=== PATIENT | male | born 1960 | race Caucasian/White ===

== ENCOUNTER 2019-04-04 09:33 | Outpatient (CLI) | payer BC ==
[2019-04-04 16:22] LABS: #Basophils 0.1 thou/uL (0.0-0.2); #Eosinphils 0.2 thou/uL (0.0-0.7); #Lymphocytes 1.4 thou/uL (1.20-3.40); #Monocytes 0.7 thou/uL (0.11-0.59); #Neutrophils 4.4 thou/uL (1.40-6.50); %Eosinophils 3.3 % (0.0-10.0); %Monocytes 10.2 % (0.0-10.0); %Neutrophils 64.6 % (42.0-75.0); Hemoglobin 14.6 g/dL (14.0-18.0); Mean Corpuscular HGB CONC 33.4 g/dL (32.0-36.0); Mean Corpuscular Hemoglobin 31.2 pg (27.0-31.0); Mean Corpuscular Volume 93.5 fL (78.0-98.0); Platelet Count 216 thou/uL (130-400); RBC Distribution Width 11.6 % (11.5-14.5); Red Blood Cell (RBC) Count 4.67 mill/uL (4.70-6.10); White Blood Cell (WBC) Count 6.9 thou/uL (4.8-10.8)
[2019-04-04 16:30] LABS: PTT 27.6 SEC (22.9-36.1)
[2019-04-04 16:31] LABS: INR-International Normal Ratio 0.9; Prothrombin Time 12.4 SEC (12.0-14.7)
[2019-04-04 16:44] LABS: ALT (SGPT) 29 U/L (8-55); AST (SGOT) 21 U/L (5-34); Albumin 4.3 g/dL (3.5-5.0); Alkaline Phosphatase 72 U/L (40-110); Anion Gap 13 mmol/L (10-20); BUN (Urea Nitrogen) 17 mg/dL (8.4-25.7); Bilirubin, Direct 0.2 mg/dL (0.1-0.3); Bilirubin, Total 0.5 mg/dL (0.2-1.2); Calc. Creatinine Clearance 0 mL/min (70-130); Calcium 9.3 mg/dL (7.8-10.44); Carbon Dioxide 29 mmol/L (22-29); Chloride 100 mmol/L (98-107); Estimated GFR-MDRD 81; Glucose 101 mg/dL (70-105); Protein, Total 6.9 g/dL (6.0-8.3); Sodium 138 mmol/L (136-145)
--- NOTE | 2019-04-06 15:24 | EKG ---
Test Reason : Blood Pressure : / mmHG Vent. Rate : 074 BPM Atrial Rate : 074 BPM P-R Int : 148 ms QRS Dur : 078 ms QT Int : 360 ms P-R-T Axes : 011 051 050 degrees QTc Int : 399 ms Normal sinus rhythm Normal ECG No previous ECGs available Confirmed by DR. Meme THRASHER ([id number]) on 04/06/2019 3:23:52 PM Referred By: IERO Confirmed By:DR. Meme THRASHER
== END 2019-04-04 09:34 | disposition home or self-care (01) ==
LOC: LABBT 09:33
PROVIDERS: ATTEND Orthopaedic Surgery
DX: Z01.818 Encounter for other preprocedural examination (principal); M75.102 Unspecified rotator cuff tear or rupture of left shoulder, not specified as traumatic
CPT/HCPCS: 80048; 80076; 85025; 85610; 85730; 93005; 93010

== ENCOUNTER 2019-04-06 06:47 | Day surgery (SDC) | payer BC ==
[2019-04-04 15:32] VITALS: BMI 32.4
[2019-04-06] MEDS ORDERED: Fentanyl 100 MCG/2 ML VIAL ONE (07:41)
[2019-04-06] MEDS ORDERED: Midazolam HCl 2 mg/2 ml Vial ONE (07:41)
[2019-04-06] MEDS ORDERED: Bupivacaine 0.25% HCL 30 ML VIAL ONE (08:16)
[2019-04-06] MEDS ORDERED: Promethazine HCl 25 MG/ML VIAL IM PRN (08:20)
[2019-04-06] MEDS ORDERED: Zolpidem Tartrate 5 MG TAB PO PRN (08:20)
[2019-04-06] MEDS ORDERED: Ketorolac Tromethamine 30 MG/ML VIAL IVP PRN (08:20)
[2019-04-06] MEDS ORDERED: Ondansetron PF 4 MG/2 ML Vial IVP PRN (08:20)
[2019-04-06] MEDS ORDERED: traMADol HCl 50 MG TAB PO PRN ×2 (08:20)
[2019-04-06] MEDS ORDERED: Ropivacaine 0.2% 550 ML 550 ML NERVE BLCK SCH (08:20)
[2019-04-06] MEDS ORDERED: HYDROcodone/Acetaminophen 10/325 mg Tablet PO PRN ×2 (08:20)
[2019-04-06] MEDS ORDERED: Fentanyl 100 MCG/2 ML VIAL IV PRN (08:20)
[2019-04-06] MEDS ORDERED: Acetaminophen 325 MG TAB PO PRN (08:23)
[2019-04-06] MEDS ORDERED: Lidocaine 1% w/Epinephrine 1:100K 20 ML VIAL ONE (08:33)
--- NOTE | 2019-04-06 11:54 | OP ---
DATE OF PROCEDURE: 04/06/2019 PREOPERATIVE DIAGNOSES: Left shoulder rotator cuff tear and biceps tendon pain and instability secondary to degenerative SLAP tear. POSTOPERATIVE DIAGNOSES: Left shoulder rotator cuff tear and biceps tendon pain and instability secondary to degenerative SLAP tear. PROCEDURES PERFORMED: 1. Left shoulder arthroscopy with arthroscopic rotator cuff repair. 2. Open biceps tenodesis. CLIPPER AND TURNER: Randall Almaraz PA-C ESTIMATED BLOOD LOSS: Minimal to 30 mL. COMPLICATIONS: None. ANESTHESIA: The patient had general anesthetic as well as a preoperative block. DISPOSITION: He did go to recovery room in stable condition. IMPLANTS: We used one titanium triple-loaded rotator cuff anchor, we used one 4.75 BioComposite SwiveLock for a double-row repair, and we used one 7 x 23 BioComposite Bio-Tenodesis screw. INDICATIONS FOR PROCEDURE: This 58-year-old active male comes in complaining of left shoulder pain and weakness. He was found to have a rotator cuff tear as well as degenerative SLAP tear. At this time, he opted for surgery. DESCRIPTION OF PROCEDURE: After all appropriate consent forms were explained and signed, he was taken to the operative room and at this time was given general anesthetic. Once the level of anesthesia was appropriate, he was rolled into the right lateral decubitus position and all bony prominences well padded. An axillary roll was placed underneath the right axilla. Beanbag was inflated to hold him in this position. The arm was then taken through full range of motion and then suspended with 15 pounds in standard arthroscopic fashion. The left shoulder and upper extremity were then prepped and draped in standard surgical fashion. Bony anatomical landmarks were drawn out. The subacromial space was infiltrated with Marcaine with epinephrine. Posterior portal was established. Scope was placed into the shoulder joint. Anterior working portal was made using a needle localization technique. Diagnostic arthroscopy commenced. Articular surface of the humeral head and glenoid were in excellent condition. No loose bodies were noted in the pouch. The rotator cuff tear was found in the beginning portion of supraspinatus. Top edge of subscapularis was also found to be torn. The patient had a degenerative SLAP tear with unstable biceps and significant synovitis around the base of this. Posterior and inferior labrum were in good condition. At this time, the shaver was introduced to debride the rotator cuff tear from the inside portion as well as top part of the subscap. At this time, we then used an 18-gauge needle to delgado the biceps and placed a stitch through it. The SERFAS energy probe was used to cut our biceps tendon off the labrum. At this time, we turned our attention to the subacromial space and replacing the scope there. Lateral working portal was made. A PassPort cannula was placed, and at this time, soft tissue was removed from off the undersurface of the acromion. No bony decompression was performed. Rotator cuff tear was found. Edges were debrided and cleaned up with a shaver. All soft tissue was removed off the bone. The shaver was used to slightly decorticate this, and at this time, through a small poke-hole incision, a triple-loaded titanium anchor was placed into the tuberosity bone just off the articular surface. We then used the Scorpion device to place the sutures through the rotator cuff in mattress fashion. We then took all these down laterally through one 4.75 SwiveLock for a double-row repair. The scope was then removed. Shoulder was drained. A 15-blade was used to incise down through skin. Bovie was used to coagulate any brisk venous bleeding. Fascia was opened up and finger dissection was used to dissect in line with the fibers of the deltoid to get down to the underlying transverse humeral ligament. This was opened up. Biceps was pulled into the wound and it was sutured. The intra-articular portion was cut off. We then placed our pin, reamed with a 7-mm reamer to a depth of 25, and placed our 7 x 23 BioComposite Bio-Tenodesis screw in standard fashion. Sutures were tied over top of this, so that screw could not back out. We then thoroughly irrigated and dried. We allowed the deltoid to close upon itself. A running Vicryl suture was used to close our deltoid fascia, 2-0 Vicryl and nylon sutures on the skin. Bulky sterile dressing was then applied. The patient was awakened and taken to recovery room in stable condition. All counts were correct at the end of the case and he did receive preoperative IV antibiotics. Job ID: [id number]
[2019-04-06] MEDS ORDERED: Ropivacaine 0.2% HCl/PF (40 MG/20 ML VIAL) ONE (14:24)
[2019-04-06] MEDS ORDERED: ePHEDrine/0.9% NaCl/PF SYRINGE 50 mg/10 ml ONE (14:24)
[2019-04-06] MEDS ORDERED: Lidocaine 1% PF 5 ML VIAL ONE (14:24)
[2019-04-06] MEDS ORDERED: Rocuronium Bromide 10 MG/ML (10ML VIAL) ONE (14:24)
[2019-04-06] MEDS ORDERED: Glycopyrrolate 0.2 MG/ML 5 ML SYRINGE ONE (14:24)
[2019-04-06] MEDS ORDERED: Ondansetron PF 4 MG/2 ML Vial ONE (14:24)
[2019-04-06] MEDS ORDERED: Ropivacaine 0.5% HCl/PF (150 MG/30 ML VIAL) ONE (14:24)
== END 2019-04-06 12:21 | disposition home or self-care (01) ==
LOC: SDC 06:47
PROVIDERS: ATTEND Orthopaedic Surgery
PROC: 0LS20ZZ Reposition Left Shoulder Tendon, Open Approach (ICD-10-PCS; principal; 2019-04-06)
PROC: 0RNK4ZZ Release Left Shoulder Joint, Percutaneous Endoscopic Approach (ICD-10-PCS; principal; 2019-04-06)
PROC: 0RHK04Z Insertion of Internal Fixation Device into Left Shoulder Joint, Open Approach (ICD-10-PCS; principal; 2019-04-06)
PROC: 0LQ24ZZ Repair Left Shoulder Tendon, Percutaneous Endoscopic Approach (ICD-10-PCS; principal; 2019-04-06)
PROC: 3E0T3BZ Introduction of Anesthetic Agent into Peripheral Nerves and Plexi, Percutaneous Approach (ICD-10-PCS; principal; 2019-04-06)
DX: S43.432A Superior glenoid labrum lesion of left shoulder, initial encounter (principal); M75.122 Complete rotator cuff tear or rupture of left shoulder, not specified as traumatic; M25.312 Other instability, left shoulder; M65.812 Other synovitis and tenosynovitis, left shoulder; E78.00 Pure hypercholesterolemia, unspecified; K21.9 Gastro-esophageal reflux disease without esophagitis; E11.9 Type 2 diabetes mellitus without complications; Z79.84 Long term (current) use of oral hypoglycemic drugs; Z79.899 Other long term (current) drug therapy
CPT/HCPCS: A4306; C1713; J0690; J2001; J2250; J2405; J2795; J3010; S0020

== ENCOUNTER 2020-02-20 06:52 | Outpatient (CLI) | payer BC ==
[2020-02-20 14:36] LABS: Bilirubin Neg (Negative); Blood, Urine Negative (Negative); Clarity Clear (Clear); Glucose, Urine (Dipstick) Normal (Negative); Ketone, Urine Negative (Negative); Leukocyte Negative (Negative); Nitrite Negative (Negative); Protein, Urine (Dipstick) Negative (Neg-Trace); Specific Gravity, Urine 1.015 (1.002-1.036); Urobilinogen Normal mg/dL (Less than 2)
[2020-02-20 15:14] LABS: Anion Gap 16 mmol/L (10-20); BUN (Urea Nitrogen) 18 mg/dL (8.4-25.7); Calc. Creatinine Clearance 0 mL/min (70-130); Calcium 9.7 mg/dL (7.8-10.44); Carbon Dioxide 28 mmol/L (22-29); Chloride 99 mmol/L (98-107); Estimated GFR-MDRD 84; Glucose 104 mg/dL (70-105); Potassium 4.3 mmol/L (3.5-5.1); Sodium 139 mmol/L (136-145)
[2020-02-20 15:24] LABS: Prothrombin Time 10.5 sec (9.5-12.1)
[2020-02-20 15:27] LABS: #Basophils 0.1 10x3/uL (0.0-0.2); #Eosinphils 0.2 10x3/uL (0.0-0.5); #Monocytes 0.7 10x3/uL (0.0-1.1); %Basophils 0.8 % (0.0-2.0); %Eosinophils 3.1 % (0.0-6.0); %Lymphocytes 22.3 % (18.0-47.0); %Monocytes 11.1 % (0.0-10.0); %Neutrophils 62.5 % (40.0-75.0); Hemoglobin 15.4 g/dL (14.0-18.0); Mean Corpuscular HGB CONC 33.5 G/DL (32.0-36.0); Mean Corpuscular Hemoglobin 32.2 PG (27.0-33.0); Mean Platelet Volume 10.3 fl (7.4-10.4); Platelet Count 218 10x3/uL (130-400); Red Blood Cell (RBC) Count 4.79 10x6/uL (4.40-5.80); White Blood Cell (WBC) Count 6.4 10x3/uL (4.5-11.0)
[2020-02-20 15:53] LABS: RBC/HPF None Seen HPF (0-3); WBC/HPF None Seen HPF (0-3)
[2020-02-20 15:54] LABS: Squamous Epithelial 0-3 HPF (0-3)
[2020-02-20 15:58] LABS: Bacteria/HPF Rare-Few HPF (None Seen)
[2020-02-21 03:41] LABS: SARS-CoV-2 MS2 Positive; SARS-CoV-2 N Gene Negative; SARS-CoV-2 S Gene Negative; SARS-CoV-2 by NAA Not Detected (NotDetected); SARS-CoV-2 orf1ab Negative
== END 2020-02-20 06:53 | disposition home or self-care (01) ==
LOC: LABBT 06:52
PROVIDERS: ATTEND Orthopaedic Surgery
DX: Z01.818 Encounter for other preprocedural examination (principal); Z20.828 Contact with and (suspected) exposure to other viral communicable diseases; M17.12 Unilateral primary osteoarthritis, left knee
CPT/HCPCS: 80048; 81001; 85025; 85610; 87081; 87635; 93005; 93010; U0003

== ENCOUNTER 2020-02-20 14:00 | Inpatient (IN) | payer BC ==
[2020-02-19 14:32] VITALS: BMI 29.9
[2020-02-25] MEDS ORDERED: Vancomycin 1.5 GRAM/300 ML BAG ONE (06:08)
[2020-02-25] MEDS ORDERED: Tranexamic Acid 1,000 MG/10 ML VIAL ONE ×2 (06:08→09:53)
[2020-02-25] MEDS ORDERED: Sodium Chloride 0.9% 100 ML ONE (06:08)
[2020-02-25] MEDS ORDERED: Fentanyl 100 MCG/2 ML VIAL ONE ×4 (06:17→09:48)
[2020-02-25] MEDS ORDERED: Midazolam HCl 2 mg/2 ml Vial ONE (06:28)
[2020-02-25] MEDS ORDERED: Bupivacaine PF 0.5% 30 ML VIAL ONE (06:47)
[2020-02-25] MEDS ORDERED: Promethazine HCl 25 MG/ML VIAL IM PRN ×3 (07:30→09:19)
[2020-02-25] MEDS ORDERED: Zolpidem Tartrate 5 MG TAB PO PRN ×2 (07:30→09:09)
[2020-02-25] MEDS ORDERED: traMADol HCl 50 MG TAB PO PRN ×2 (07:30)
[2020-02-25] MEDS ORDERED: Ropivacaine HCl/PF 250 ML in Premix Bag 1 BAG NERVE BLCK SCH (07:30)
[2020-02-25] MEDS ORDERED: Ondansetron PF 4 MG/2 ML Vial IVP PRN ×2 (07:30→09:09)
[2020-02-25] MEDS ORDERED: HYDROcodone/Acetaminophen 10/325 mg Tablet PO PRN (07:30)
[2020-02-25] MEDS ORDERED: Fentanyl 100 MCG/2 ML VIAL IV PRN (07:31)
[2020-02-25] MEDS ORDERED: Acetaminophen 325 MG TAB PO PRN (09:09)
[2020-02-25] MEDS ORDERED: diphenhydrAMINE 25 MG CAP PO PRN (09:09)
[2020-02-25] MEDS ORDERED: Tranexamic Acid 1,000 MG in Sodium Chloride 0.9% 100 ML IVPB SCH (09:15)
[2020-02-25] MEDS ORDERED: Ondansetron HCl/PF 4 MG/2 ML Vial IVP PRN (09:19)
[2020-02-25] MEDS ORDERED: Promethazine HCl 25 MG/ML VIAL SLOW IVP PRN (09:19)
[2020-02-25] MEDS ORDERED: Ketorolac Tromethamine 30 MG/ML VIAL ONE ×2 (09:34→10:01)
[2020-02-25] MEDS: Ketorolac Tromethamine 30 MG/ML VIAL IVP SCH ×3 (12:23→22:59)
[2020-02-25] MEDS: HYDROcodone/Acetaminophen 10/325 mg Tablet PO PRN ×2 (12:24→17:36)
[2020-02-25] MEDS ORDERED: Ropivacaine 0.2% HCl/PF (40 MG/20 ML VIAL) ONE (13:58)
[2020-02-25] MEDS ORDERED: Dexamethasone 20 MG/5 ML VIAL ONE (13:58)
[2020-02-25] MEDS ORDERED: Ondansetron PF 4 MG/2 ML Vial ONE (13:58)
[2020-02-25] MEDS ORDERED: PROPOFOL 200 MG/20 ML VIAL ONE (13:58)
[2020-02-25] MEDS ORDERED: Bupivacaine HCl 0.5%/Epinephrine 1:200,000/PF 30 ml Vial ONE (13:58)
[2020-02-25] MEDS ORDERED: Lidocaine 1% PF 5 ML VIAL ONE (13:58)
[2020-02-25] MEDS: CEFAZOLIN 2 GM in Premix Bag 1 BAG IVPB SCH ×2 (14:14→21:00)
[2020-02-25] MEDS: Sodium Chloride 0.9% 1,000 ML IV SCH ×2 (15:03→19:28)
[2020-02-25] MEDS ORDERED: Vancomycin HCl 1.5 GM in Sodium Chloride 0.9% 250 ML 300 ML IVPB SCH (18:00)
[2020-02-25] MEDS ORDERED: Vancomycin 1.5 GRAM/300 ML BAG 1.5 GM in Premix Bag 1 BAG IVPB SCH (18:00)
--- NOTE | 2020-02-25 19:10 | OP ---
DATE OF PROCEDURE: 02/25/2020 PREOPERATIVE DIAGNOSIS: Left knee osteoarthrosis. POSTOPERATIVE DIAGNOSIS: Left knee osteoarthrosis. PROCEDURES PERFORMED: Left total knee replacement using AAV[employer] pinless navigation. AGRICULTURAL MECHANIC: Randall Almaraz PA-C. The assistant merchandise manager surgeon was present throughout the procedure to include the approach, the entire total knee replacement, followed by closure of the wound. ESTIMATED BLOOD LOSS: Minimal. COMPLICATIONS: None. ANESTHESIA: He did have a general anesthetic. He also had a preoperative block. IMPLANTS: To the left knee include [employer] total knee system, the femur is a size 4 cruciate retaining femur. We used a size 4 primary tibial base plate. We used a 4 x 11 mm CS X3 tibial poly. We used a 29 x 9 asymmetric X3 patella. DISPOSITION: He went to recovery room in stable condition. INDICATIONS FOR PROCEDURE: This is a 59-year-old male. He has been dealing with significant pain in the left knee for months and unfortunately, he has failed nonoperative treatment. At this time, he wished to have knee replaced. PROCEDURE IN DETAIL: After all appropriate consent forms were explained and signed, the patient was taken back to the operating room and at this time was given general anesthetic. Once the level of anesthesia was appropriate, a well-padded tourniquet was placed on the left leg, and the leg was then prepped and draped in standard surgical fashion. The limb was exsanguinated and tourniquet taken up to 300 mmHg. Midline incision was made with a 10 blade down through the skin and subcutaneous tissue. Bovie electrocautery was used to coagulate any brisk venous bleeding. A new blade was used to make a medial parapatellar arthrotomy. Small subperiosteal release was performed medially and excess fat pad was removed. The knee was flexed up to gain access to the femur. The femur was navigated and distal femoral resection was made. Epicondylar access was used to align our sizing jig and this was pinned in place. We sized our femur to be a size 4 cruciate retaining femur. 4:1 cutting block was applied and pinned. Anterior and posterior chamfer cuts were then made. We navigated out our proximal tibia and made our proximal tibial resection. Spreaders were used to remove any posterior osteophytes off the back of the femur as well as remaining meniscal tissue. A long alignment bobby was then used to achieve correct rotation of our tibial baseplate and a size 4 was chosen. This was pinned in place. We trialed the polyethylene and a 4 x 11 mm CS X3 tibial polyethylene gave us full extension and good stability throughout range of motion. Two towel clips and a saw were used to cut our patella. Three lug nuts were drilled and 29 x 9 asymmetric X3 patella was trialed which sat nicely in the trochlear groove. We then drilled our femur and punched our tibia. All components were removed. The knee was thoroughly irrigated and dried. Cement was mixed into the cement gun on the back table. Components were then placed. The knee was held out in full extension until the cement had dried. All excess bone cement was removed. Multiple #2 Vicryl stitches as well as a Quill were used to close our extensor mechanism. 0 Quill followed by a running Monoderm was then used to close the skin. Surgicel glue was then used on the skin. Once this had dried, soft tissue dressing was applied to the limb, tourniquet was let down, and the toes pinked up nicely. The patient was then awakened and taken to the recovery room in stable condition. All counts were correct at the end of the case. The patient did receive preoperative IV antibiotics. The patient was injected with Marcaine for postoperative pain relief. Job ID: [id number]
[2020-02-25] MEDS: Ferrous Gluconate 324 MG TAB PO SCH (21:00)
[2020-02-25] MEDS: Aspirin 81 mg Enteric Coated Tablet PO SCH (21:00)
[2020-02-25] MEDS: metFORMIN 500 MG TAB PO SCH (21:00)
[2020-02-25] MEDS: Senokot S 8.6-50 MG TAB PO SCH (21:00)
[2020-02-26] MEDS: Sodium Chloride 0.9% 1,000 ML IV SCH ×2 (05:49→15:07)
[2020-02-26] MEDS: HYDROcodone/Acetaminophen 10/325 mg Tablet PO PRN ×4 (05:53→20:15)
[2020-02-26] MEDS: Ketorolac Tromethamine 30 MG/ML VIAL IVP SCH ×3 (05:54→17:30)
[2020-02-26 05:56] LABS: Mean Corpuscular HGB CONC 33.1 g/dL (32.0-36.0); Mean Corpuscular Hemoglobin 32.8 pg (27.0-31.0); Mean Platelet Volume 7.6 fL (7.4-10.4); Platelet Count 147 thou/uL (130-400); RBC Distribution Width 11.4 % (11.5-14.5); Red Blood Cell (RBC) Count 3.97 mill/uL (4.70-6.10); White Blood Cell (WBC) Count 11.1 thou/uL (4.8-10.8)
[2020-02-26] MEDS: Cholecalciferol (Vitamin D3) 400 UNITS TAB PO SCH (08:27)
[2020-02-26] MEDS: Magnesium Oxide 400 MG TAB PO SCH (08:27)
[2020-02-26] MEDS: Multivitamin W/ Minerals 1 TAB PO SCH (08:27)
[2020-02-26] MEDS: Ferrous Gluconate 324 MG TAB PO SCH ×2 (08:27→20:16)
[2020-02-26] MEDS: Aspirin 81 mg Enteric Coated Tablet PO SCH ×2 (08:27→20:16)
[2020-02-26] MEDS: metFORMIN 500 MG TAB PO SCH ×2 (08:27→20:16)
[2020-02-26] MEDS: Senokot S 8.6-50 MG TAB PO SCH ×2 (08:27→20:16)
--- NOTE | 2020-02-26 12:35 | PRG ---
DATE OF SERVICE: 02/26/2020 SUBJECTIVE: Ernesto is a 59-year-old male, postoperative day #1 from a left total knee arthroplasty. He is doing relatively well and he has no complaints. At this point, his pain is controlled. He has ambulated distances greater than 120 feet. OBJECTIVE: VITAL SINGS: Temperature 98.4, pulse rate 71, respiratory rate 14 and nonlabored, and blood pressure is 135/72. GENERAL: He is alert and oriented to person, place, time and situation, responsive and appropriate to examiner, conversive. Incision is clean. No strikethrough. No malrotation or shortening. He is neurovascularly intact in left lower extremity. LABORATORY DATA: Hemoglobin and hematocrit are 13.0 and 39.3. IMPRESSION: A 59-year-old male, postoperative day #1, left total knee arthroplasty, doing well. PLAN: Continue to observe for hemorrhage. Follow for pain control. Continue physical therapy. Advance ADLs and . Expected discharge, tomorrow. Job ID: [id number]
[2020-02-26] MEDS ORDERED: Atorvastatin Calcium 40 MG TAB PO SCH (21:00)
[2020-02-27] MEDS: Ketorolac Tromethamine 30 MG/ML VIAL IVP SCH ×2 (00:03→06:25)
[2020-02-27] MEDS: HYDROcodone/Acetaminophen 10/325 mg Tablet PO PRN ×2 (00:03→07:59)
[2020-02-27] MEDS: Sodium Chloride 0.9% 1,000 ML IV SCH ×2 (00:04→10:52)
[2020-02-27 06:34] LABS: Hemoglobin 11.5 g/dL (14.0-18.0); Mean Corpuscular HGB CONC 33.3 g/dL (32.0-36.0); Mean Corpuscular Volume 99.3 fL (78.0-98.0); Platelet Count 121 thou/uL (130-400); RBC Distribution Width 11.4 % (11.5-14.5); Red Blood Cell (RBC) Count 3.49 mill/uL (4.70-6.10); White Blood Cell (WBC) Count 7.7 thou/uL (4.8-10.8)
[2020-02-27] MEDS: Aspirin 81 mg Enteric Coated Tablet PO SCH (08:00)
[2020-02-27] MEDS: Ferrous Gluconate 324 MG TAB PO SCH (08:00)
[2020-02-27] MEDS: Senokot S 8.6-50 MG TAB PO SCH (08:00)
[2020-02-27] MEDS: Cholecalciferol (Vitamin D3) 400 UNITS TAB PO SCH (08:00)
[2020-02-27] MEDS: Multivitamin W/ Minerals 1 TAB PO SCH (08:00)
[2020-02-27] MEDS: Magnesium Oxide 400 MG TAB PO SCH (08:00)
[2020-02-27] MEDS: metFORMIN 500 MG TAB PO SCH (08:00)
[2020-02-27 12:25] VITALS: BP 147/80; TEMP 98.5
== END 2020-02-27 12:27 | disposition home or self-care (01) | DRG 470 ==
LOC: SJJU 02-25 05:24 → SURG A 02-25 11:10
PROVIDERS: ADMIT Orthopaedic Surgery; ATTEND Orthopaedic Surgery
PROC: 0SRD0J9 Replacement of Left Knee Joint with Synthetic Substitute, Cemented, Open Approach (ICD-10-PCS; principal; 2020-02-25)
DX: M17.12 Unilateral primary osteoarthritis, left knee (principal); Z20.828 Contact with and (suspected) exposure to other viral communicable diseases; E78.5 Hyperlipidemia, unspecified; E11.9 Type 2 diabetes mellitus without complications; E83.119 Hemochromatosis, unspecified; F17.210 Nicotine dependence, cigarettes, uncomplicated; Z79.84 Long term (current) use of oral hypoglycemic drugs; Z79.899 Other long term (current) drug therapy
CPT/HCPCS: 36415; 85027; C1713; C1776; J0690; J1100; J1885; J2250; J2405; J2704; J2795; J3010; J3370; J3490; S0020